=== PATIENT | male | born 1955 | race Caucasian/White ===

== ENCOUNTER 2016-09-10 03:29 | Inpatient (IN) | payer OTHER ==
[~2016-09-10] VITALS: Ht 180.3 cm; Wt 77.2 kg
[2016-09-10] VITALS (8 sets, daily range): BP systolic 99–123; BP diastolic 55–72; PULSE 75–113; RESP 19–20; TEMP 98.3; Ht 180.3 cm; Wt 77.2 kg
[2016-09-10] MEDS ORDERED: DILTIAZEM 25 MG INJ ONE (06:31)
[2016-09-10] MEDS ORDERED: DILTIAZEM 25 MG INJ IV ONE ×2 (07:00)
[2016-09-10] MEDS ORDERED: SOD CHLORIDE 0.9% 1,000 ML IV ONE (07:00)
[2016-09-10] MEDS ORDERED: LORAZEPAM 2 MG INJ IV ONE (07:00)
--- NOTE | 2016-09-10 07:06 | RADRPT ---
PROCEDURE: XR Chest. CLINICAL INDICATION: Abdominal Pain TECHNIQUE: Portable single view of the chest COMPARISON: None. FINDINGS: The cardiomediastinal silhouette appears within normal limits. The lungs are clear and no pleural e ffusion or significant edema is seen. Mild degenerative change of the spine is seen with osteophytes noted. IMPRESSION: No definite acute pulmonary disease. RPTAT: HLBE Joan Nj Physician Date Time Electronically viewed and signed by Joan Nj Physician on 09/10/2016 07:06 ASHLEIGH/
[2016-09-10 07:08] LABS: ADD SCAN DIFF NO
[2016-09-10 07:14] LABS: ABNORMAL IP MESSAGE 1; HEMATOCRIT 52.5 % (42.0-52.0); HEMOGLOBIN 17.2 g/dl (14.0-18.0); MEAN CORPUSCULAR HEMOGLOBIN 30.9 pg (29.0-33.0); MEAN CORPUSCULAR HGB CONC 32.8 g/dl (32.0-37.0); MEAN CORPUSCULAR VOLUME 94.4 fl (82.0-101.0); PLATELET COUNT 370 10^3/UL (140-415); RED BLOOD COUNT 5.56 10^6/ul (4.70-6.10); RED CELL DISTRIBUTION WIDTH 13.3 % (11.5-14.5); WHITE BLOOD COUNT 14.6 10^3/ul (4.8-10.8)
[2016-09-10 07:21] LABS: ALBUMIN 4.1 g/dl (3.3-4.9); INR 0.88; POTASSIUM 4.1 mmol/L (3.5-5.1); PROTIME 11.9 Sec (12.2-14.2); PT RATIO 0.9
[2016-09-10 07:24] LABS: ALBUMIN/GLOBULIN RATIO 1.32; BILIRUBIN,INDIRECT 0.9 mg/dl (0-1.1); BILIRUBIN,TOTAL 0.9 mg/dl (0.2-1.3); CALCIUM 9.4 mg/dl (8.4-10.2); CREATININE 1.09 mg/dl (0.61-1.24); TOTAL PROTEIN 7.2 g/dl (6.1-8.1)
[2016-09-10 07:35] LABS: TROPONIN-I 0.059 ng/ml (0.00-0.12)
[2016-09-10] MEDS ORDERED: CLON0.5T4 PO (07:35)
[2016-09-10] MEDS ORDERED: DILTIAZEM-D5W 125MG/125ML DRIP 125 ML IV SCH (08:00)
[2016-09-10] MEDS ORDERED: ASPIRIN 325 MG TAB PO ONE (08:00)
--- NOTE | 2016-09-10 08:07 | ERA ---
ER Documentation Chief Complaint Date/Time DATE: 09/10/16 TIME: 08:03 Chief Complaint diffuse abd pain x 2 days, diarrhea, vomiting HPI 60-year-old man presents with anxiety, palpitations, nonexertional chest pain generalized weakness 3 days. He also states he has had clear emesis and diarrhea intermittently. He denies history of atrial fibrillation, or irregular heartbeat. Patient denies fevers or chills, no new medication use, no recent travel, no calf or leg swelling. ROS All systems reviewed and are negative except as per history of present illness. 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 09/11/16 Diltiazem Hcl* (Cardizem CD*) 120 Mg Cap.sr.24h, 120 MG PO DAILY for 30 Days Prov:LAUREEN LEBLANC [employer]DB[employer]ATING MACHINE OPERATOR 09/11/16 Reported Medications Clonazepam* (Clonazepam*) 0.5 Mg Tablet, 0.5 MG PO BID Y for ANXIETY, TAB 09/10/16 Allergies Allergies: Coded Allergies: No Known Allergy (Unverified , 09/10/16) PMhx/Soc Anxiety, possible other psychiatric illness, hypertension History of Surgery: Yes (GALLBLADDER REMOVAL ) Anesthesia Reaction: No Hx Miscellaneous Medical Probl: Yes (GERD, ANXIETY ) Hx Alcohol Use: No Hx Substance Use: No Hx Tobacco Use: No Smoking Status: Never smoker FmHx Family History: No diabetes Physical Exam Vitals Vital Signs Date Time Temp Pulse Resp B/P Pulse Ox O2 Delivery O2 Flow Rate FiO2 09/10/16 07:11 104 20 128/82 100 Nasal Cannula 2.0 09/10/16 07:09 98.3 131 20 130/74 100 Nasal Cannula 2.0 09/10/16 06:50 Nasal Cannula 2 09/10/16 06:25 98.0 167 18 124/78 99 Room Air 09/10/16 03:33 98.2 90 20 113/71 98 Physical Exam GENERAL: Well-developed, well-nourished, appears anxious, afebrile HEENT: Moist mucous membranes, pink conjunctiva, no cervical spine tenderness or step-off deformities, no goiter, no jaundice or icterus, extraocular movements intact without pain. No submandibular induration, and no pharyngeal erythema NEURO: Alert and oriented 3, cranial nerves II through XII intact bilaterally, pupils equal round reactive to light, no focal deficits or facial asymmetry, sensation intact distally Strength 5/5 in upper and lower extremities bilaterally CARDIAC: Tachycardic and regular, no murmurs rubs or gallops LUNGS: Clear bilaterally no wheezing crackles or stridor ABDOMEN: Soft nontender, no guarding, no rigidity, no rebound, no psoas sign no obturator sign. Normoactive bowel sounds SKIN: Warm and dry to touch, no abrasions, contusions, or hematomas, no lacerations, no ecchymosis, no target lesions, and without ulcers EXTREMITIES: No clubbing cyanosis or edema, calves are bilaterally symmetrical, no Homans sign, no popliteal cord sign. Distal pulses equal and bilateral PSYCH: Anxious Result Diagram: 09/10/16 0649 09/10/16 0645 Results 24 hrs Laboratory Tests Test 09/10/16 06:45 09/10/16 06:49 Alanine Aminotransferase (ALT/SGPT) 26IU/L Albumin 4.1g/dl Albumin/Globulin Ratio 1.32 Alkaline Phosphatase 99IU/L Anion Gap 20 Aspartate Amino Transf (AST/SGOT) 26IU/L Blood Urea Nitrogen 22mg/dl Calcium Level 9.4mg/dl Carbon Dioxide Level 25mmol/L Chloride Level 109mmol/L Creatinine 1.09mg/dl Direct Bilirubin 0.00mg/dl Globulin 3.10g/dl Glucose Level 120mg/dl INR International Normalized Ratio 0.88 Indirect Bilirubin 0.9mg/dl Lipase 68U/L Potassium Level 4.1mmol/L Prothrombin Time 11.9Sec Prothrombin Time Ratio 0.9 Sodium Level 150mmol/L Total Bilirubin 0.9mg/dl Total Protein 7.2g/dl Troponin I 0.059ng/ml Eosinophils # 10^3/ul Eosinophils % % Hematocrit 52.5% Hemoglobin 17.2g/dl Mean Corpuscular Hemoglobin 30.9pg Mean Corpuscular Hemoglobin Concent 32.8g/dl Mean Corpuscular Volume 94.4fl Mean Platelet Volume 9.0fl Neutrophils # 10^3/ul Neutrophils % % Platelet Count 67414^3/UL Red Blood Count 5.5610^6/ul Red Cell Distribution Width 13.3% White Blood Count 14.610^3/ul Current Medications Medications (Trade) Dose Ordered Sig/Shanta Route PRN Reason Start Time Stop Time Status Last Admin Dose Admin Diltiazem HCl (Cardizem Iv) 25 mg STK-MED ONCE .ROUTE 09/10/16 06:31 09/10/16 06:32 DC Diltiazem HCl 20 mg 20 mg ONCE ONCE IV 09/10/16 07:00 09/10/16 07:01 DC 09/10/16 06:40 Sodium Chloride (NS) 1,000 ml @ 1,000 mls/hr Q1H ONCE IV 09/10/16 07:00 09/10/16 07:59 DC 09/10/16 07:07 Lorazepam (Ativan) 0.5 mg ONCE ONCE IV 09/10/16 07:00 09/10/16 07:01 DC 09/10/16 07:07 Diltiazem HCl 20 mg 20 mg ONCE ONCE IV 09/10/16 07:00 09/10/16 07:01 DC 09/10/16 07:04 Diltiazem HCl (Cardizem-D5W 125 Mg/125 ml Drip) 125 ml @ 5 mls/hr TITRATE IV 09/10/16 08:00 09/10/16 07:57 Aspirin (Aspirin) 325 mg ONCE ONCE PO 09/10/16 08:00 09/10/16 08:01 DC Procedures/[facility] IV line was established patient was placed on satellite project site monitor rhythm strip revealed a narrow complex irregular rate at about 170 bpm. Patient was afebrile. EKG performed, read by me revealed an atrial fibrillation with rapid ventricular response at 167 bpm, normal axis, narrow QRS complex, no concerning ST elevations or depressions noted. Patient received 1 L normal saline intravenously and diltiazem 20 mg IV 2 doses followed by diltiazem drip titrated to keep pulse at about 100 bpm. EKG #2 post diltiazem was performed, read by me revealed an atrial fibrillation rapid ventricular rate at 114 bpm, normal axis, narrow QRS complex, no concerning ST elevations or depressions noted. Patient also received lorazepam 0.5 mg IV for anxiety and aspirin 325 mg p.o. for cardioprotective measures. One AP view of the chest performed, read by me reveals no acute infiltrates, normal mediastinum, sharp costophrenic and cardiac borders, no air under the diaphragm. Otherwise unremarkable chest x-ray. Cardiac critical Care: Time: 45 minutes, this was time separate from other procedures. Treatments/Evaluations: Close monitoring and treatment of unstable vital signs, cardiorespiratory, and neurologic status, while maintaining tight balance of fluid, respiratory, and cardiac interventions. CBC revealed a leukocytosis of 15, electrolytes revealed dehydration with a BUN/ creatinine of 22/1, liver function tests are normal, troponin was negative. Patient will be admitted to telemetry setting. Departure Diagnosis: Primary Impression: Dehydration Additional Impression: Atrial fibrillation with RVR Condition: IDALMIS Nascimento MD Sep 10, 2016 08:07
[2016-09-10] MEDS ORDERED: NITROGLYCERIN (SL) 0.4 MG TAB SL PRN (10:00)
[2016-09-10] MEDS ORDERED: DILTIAZEM 30 MG TAB PO ONE (10:00)
[2016-09-10] MEDS ORDERED: LORAZEPAM 0.5 MG TAB PO PRN (10:00)
[2016-09-10] MEDS ORDERED: NACL 0.9% 3 ML SYG IV SCH (10:00)
[2016-09-10] MEDS ORDERED: ONDANSETRON 4 MG TAB PO PRN (10:00)
[2016-09-10] MEDS ORDERED: ACETAMINOPHEN 325 MG TAB PO PRN (10:00)
[2016-09-10] MEDS ORDERED: morphine 2 MG INJ IV PRN (10:00)
[2016-09-10] MEDS ORDERED: DOCUSATE SODIUM 100 MG CAP PO PRN (10:00)
[2016-09-10] MEDS: PANTOPRAZOLE (EC) 40 MG TAB PO SCH (10:30)
[2016-09-10] MEDS: clonAZEPAM 0.5 MG TAB PO PRN (10:30)
[2016-09-10] MEDS: ENOXAPARIN 40 MG/0.4 ML SYG SC SCH (10:33)
[2016-09-10 10:42] LABS: EOSINOPHILS # 0.3 10^3/ul (0.0-0.5); LYMPHOCYTES # 1.2 10^3/ul (0.8-2.9); MONOCYTE # 0.6 10^3/ul (0.3-0.9)
--- NOTE | 2016-09-10 11:21 | CONS ---
Date/Time of Note Date/Time of Note DATE: 09/10/16 TIME: 11:14 Assessment/Plan Assessment/Plan Chief Complaint/Hosp Course Afib with RVR: Possibly triggered by GI issues, dehydration. CHADSVASC is 0 so no anticoagulation. Rates now controlled off diltiazem drip. Diarrhea/vomiting: ?gastroenteritis Anxiety/depression -start diltiazem 30mg PO q6h, consolidate to 120mg daily tomorrow -f/u echo -IVF as clinically dry -if rates controlled and asymptomatic and no major echo abnormalities, can go home later this evening or tomorrow Problems: Consultation Date/Type/Reason Admit Date/Time Sep 10, 2016 at 09:15 Date of Consultation: Sep 10, 2016 Type of Consultation: Cardiology Reason for Consultation Afib Referring Provider: ENID ARMENDARIZ MD Hx of Present Illness 60 yo M with a h/o anxiety/depression/insomnia, who was admitted for N/V/ diarrhea as well as palpitations and was found to have afib with RVR. He was given IV diltiazem and a drip was started but he has since been taken off the drip. Pt notes that he woke up today and vomited and had diarrhea. He then had palpitations and so he came in for evaluation. Currently asymptomatic. He denies ever having palpitations in the past. He is usually very active and denies CP or SOB. He smokes 2 cigarettes a day and does not drink any alcohol. Currently asymptomatic. per HPI Past Medical History per HPI Social History Smoking Status: Light tobacco smoker Exam/Review of Systems Vital Signs Vitals Vital Signs Date Time Temp Pulse Resp B/P Pulse Ox O2 Delivery O2 Flow Rate FiO2 09/10/16 09:40 98.4 104 20 110/72 2 Nasal Cannula 09/10/16 08:37 2.0 Exam Constitutional: alert, oriented Psych: nl mood/affect, no complaints Head: atraumatic, normocephalic Eyes: nl conjunctiva ENMT: nl external ears & nose Neck: supple, No jvd Respiratory: clear to auscultation, No crackles/rales Cardiovascular: nl pulses, No edema, No regular rate and rhythm (IRIR) Gastrointestinal: non-tender, soft Musculoskeletal: nl extremities to inspection Extremities: normal pulses Neurological: nl mental status, nl speech Skin: No rash or lesions Results EKG: initially afib with RVR rate 170s, then 110. nonspecific ST/T changes Result Diagram: 09/10/16 0649 09/10/16 0645 Results 24 hrs Laboratory Tests Test 09/10/16 06:45 09/10/16 06:49 Alanine Aminotransferase (ALT/SGPT) 26 Albumin 4.1 Albumin/Globulin Ratio 1.32 Alkaline Phosphatase 99 Anion Gap 20 H Aspartate Amino Transf (AST/SGOT) 26 Blood Urea Nitrogen 22 H Calcium Level 9.4 Carbon Dioxide Level 25 Chloride Level 109 Creatinine 1.09 Direct Bilirubin 0.00 Globulin 3.10 Glucose Level 120 INR International Normalized Ratio 0.88 Indirect Bilirubin 0.9 Lipase 68 Potassium Level 4.1 Prothrombin Time 11.9 L Prothrombin Time Ratio 0.9 Sodium Level 150 H Total Bilirubin 0.9 Total Protein 7.2 Troponin I 0.059 Band Neutrophils % 11.0 H Differential Comment MANUAL DIFF Eosinophils # 0.3 Eosinophils % 2.0 Hematocrit 52.5 H Hemoglobin 17.2 Lymphocytes # 1.2 Lymphocytes % 8.0 L Mean Corpuscular Hemoglobin 30.9 Mean Corpuscular Hemoglobin Concent 32.8 Mean Corpuscular Volume 94.4 Mean Platelet Volume 9.0 Monocytes # 0.6 Monocytes % 4.0 Neutrophils # 11.0 H Neutrophils % 75.0 Platelet Count 370 Red Blood Count 5.56 Red Cell Distribution Width 13.3 White Blood Count 14.6 H Medications Medications Current Medications Clonazepam (Klonopin) 0.5 mg BID PRN PO ANXIETY Last administered on 09/10/16t 10:30; Admin Dose 0.5 MG; Start 09/10/16 at 10:00 Ondansetron HCl (Zofran Tab) 4 mg Q6H PRN PO NAUSEA AND/OR VOMITING; Start 04/19 at 10:00 Aspirin (Aspirin) 81 mg DAILY PO ; Start 09/11/16 at 09:00 Nitroglycerin (Nitroglycerin (Sl Tab) 0.4 Mg) 1 tab Q5M PRN SL CHEST PAIN; Start 09/10/16 at 10:00 Acetaminophen (Tylenol Tab) 650 mg Q6H PRN PO PAIN LEVEL 1-3 OR FEVER; Start at 10:00 Morphine Sulfate (morphine) 1 mg Q4H PRN IV PAIN LEVEL 7-10; Start 09/10/16 at 10:00 Docusate Sodium (Colace) 100 mg Q12H PRN PO CONSTIPATION; Start 09/10/16 at 10: 00 Pantoprazole (Protonix Tab) 40 mg DAILY@06 PO Last administered on 09/10/16 10 :30; Admin Dose 40 MG; Start 09/10/16 at 10:00 Enoxaparin Sodium (Lovenox) 40 mg DAILY SC Last administered on 09/10/16 10:33 ; Admin Dose 40 MG; Start 09/10/16 at 10:00 Diltiazem HCl (Cardizem) 30 mg QID PO ; Start 09/10/16 at 13:00 LUIS WEAVER Sep 10, 2016 11:21
[2016-09-10 12:36] LABS: CK-MB 1.36 ng/ml (0.0-2.4)
[2016-09-10 12:38] LABS: TROPONIN-I 0.097 ng/ml (0.00-0.12)
[2016-09-10] MEDS: DILTIAZEM 30 MG TAB PO SCH ×3 (12:41→21:01)
--- NOTE | 2016-09-10 13:53 | RADRPT ---
Echocardiogram Report Patient Name: BENNY MCRAE Gender: Male Date: 1955 Study Date: 10-Sep-2016 Sap Ppm Consultant: Edwardo Rain [facility] Location: [id number] Ref. Physician: ENID ARMENDARIZ Quality: Good Procedures: Transthoracic echocardiogram with complete 2D, M-Mode, and doppler examination. Indications: New onset Atrial Fibrillation. 2D/M Mode Doppler Measurement Value Normal Ranges Measurement Value Normal Ranges LVIDd 2D 4.0 3.5 - 5.6 cm AV Peak Remi 1.3 m/sec LVIDs 2D 2.0 2.1 - 4.1 cm AV Peak PG 6.0 mmHg FS 2D 49.9 % LVOT Peak Remi 1.2 m/sec LVPWd 2D 1.1 0.6 - 1.1 cm LVOT Peak PG 6.0 mmHg IVSd 2D 1.2 0.6 - 1.1 cm IVS/LVPW 2D 1.1 AoR Diam 2D 2.9 2.0 - 3.7 cm LA/Ao 2D 1 0 - 1 EDV 2D 61.6 cm3 ESV 2D 7.8 cm3 LA Dimen 2D 3.5 2.3 - 4.0 cm Findings Left Ventricle: Normal left ventricular systolic function. Normal left ventricular cavity size. Mild concentric left ventricular hypertrophy. Ejection fraction is visually estimated at 60 %. Tissue Doppler/Mitral Doppler indices are indeterminate in this study due to the presence of atrial fibrillation. Right Ventricle: Normal right ventricular size. Normal right ventricular systolic function. Left Atrium: There is mild enlargement of left atrium. Right Atrium: There is mild enlargement of right atrium. Mitral Valve: Severe mitral annular calcification. Trace mitral regurgitation. Aortic Valve: No significant aortic stenosis or insufficiency. Aortic cusps appear mildly calcified. Tricuspid Valve: Normal appearance of the tricuspid valve. Unable to obtain RVSP due to minimal presence of tricuspid regurgitation. Pulmonic Valve: Normal pulmonic valve appearance. Pericardium: Normal pericardium with no significant pericardial effusion. Aorta: Normal aortic root. IVC: Normal size and normal respiratory collapse consistent with normal right atrial pressure. Conclusions 1.Normal left ventricular systolic function. Normal left ventricular cavity size. Mild concentric left ventricular hypertrophy. Ejection fraction is visually estimated at 60 %. Tissue Doppler/Mitral Doppler indices are indeterminate in this study due to the presence of atrial fibrillation. 2.No significant valvular stenosis or regurgitation seen. 3.Unable to obtain RVSP due to minimal presence of tricuspid regurgitation. RA pressure is 3 mmHg. Electronically Signed By: Brooks Nuñez 10-Sep-2016 13:52:03 -0800 Patient Name: BENNY MCRAE Study Date: 10-Sep-2016 [id number]
[2016-09-10] MEDS ORDERED: DILTIAZEM 30 MG TAB PO SCH (14:00)
[2016-09-10] MEDS: SOD CHLORIDE 0.45% 1,000 ML IV SCH (17:20)
[2016-09-10] MEDS: CIPROFLOXACIN 500 MG TAB PO SCH (17:20)
--- NOTE | 2016-09-10 17:37 | HP ---
DATE OF ADMISSION: 09/10/2016 FITTER MECHANIC: Cardiology. CHIEF COMPLAINT: Palpitations and lightheadedness. HISTORY OF PRESENT ILLNESS: This is a pleasant 60-year-old gentleman with past medical history of a nxiety who presents to [facility] secondary to having diffuse abdominal pain x2 da ys with diarrhea, vomiting and palpitations. Upon arrival to emergency room, the patient's LFTs wer e within normal limits. Troponin was 0.059, 0.97. Sodium 150. The patients' monitor was found to have new onset of atrial fibrillation and was treated with Cardizem IV, cardiology was consulted in the course of emergency room. At this time, the patient denies any chest pain, shortness of breath, nausea, vomiting, diarrhea. No headache, dizziness, lightheadedness. No change in visual acuity, d iplopia, photophobia. No abdominal pain. The diarrhea has resolved completely. He denies having a ny other discomfort. He denies any recent travel history. No sick contact. No change in the color of stool. No hematochezia, melena or hematemesis. PAST MEDICAL AND SURGICAL HISTORY: Anxiety. MEDICATIONS: Klonopin. SOCIAL HISTORY: Negative x3 for smoking, alcohol, illicit drugs. Lives at home with his family. REVIEW OF SYSTEMS: As above per HPI, otherwise 12 review of systems was found to be negative. PHYSICAL EXAMINATION: VITAL SIGNS: Temperature 98.4, pulse ranges between 86 to 104, blood pressure 110/72, oxygen 97% in room air. GENERAL APPEARANCE: The patient is lying in bed comfortably without any acute distress. He is awak e, alert, oriented. He is able to answer my questions properly. EYES AND ENT: Conjunctivae and lids are normal. Pupils are normal. Extraocular normal. Hearing g rossly normal. Lips are normal. Oral mucosa is moist. NECK: Supple. Trachea is midline. No lymphadenopathy. RESPIRATORY: Effort is normal. Clear to auscultation bilaterally. CARDIOVASCULAR: Normal S1, S2. Irregular rhythm, regular rate. No murmur, no bruits, no edema. P eripheral pulses, radial pulses palpable. Cap refill is normal. CHEST: Normal expansion of thorax during inspiration. ABDOMEN: Abdomen is soft, nontender, not distended. Bowel sounds present. No guarding, no reboun d. GENITOURINARY: Deferred. MUSCULOSKELETAL: Upper and lower extremities within normal limits. Full range of motion, strength 5/5 both upper and lower extremities. NEUROLOGIC: Cranial nerves II through XII are grossly intact. PSYCHIATRIC: Normal judgment and insight. Alert and oriented x3. Mood and affect is normal. LABORATORY WORK: Sodium 150, potassium 4.1, chloride 109, bicarbonate 25, BUN 22, creatinine 1.0. Glucose 120. LFTs all within normal limits. Troponin 0.059 and 0.97, lipase 68. PT 11.9, INR 0.88 . WBC 14.3, hemoglobin 17.3, hematocrit 50.5, platelet 370. ASSESSMENT AND PLAN: 1. New onset of atrial fibrillation. The patient is status post Cardizem drip and will also place the patient on aspirin, Lovenox 40 mg. Cardiology has been consulted. A 2D echocardiogram was obta ined. 2. Possible gastroenteritis. We will start the patient on ciprofloxacin and follow up stool sample . 3. For deep venous thrombosis prophylaxis, on Lovenox with gastrointestinal prophylaxis on Pepcid. 4. Anxiety. The patient will be continued on Klonopin. We will continue to monitor patient closely. Further recommendations, management, and treatment as per clinical course. Dictated By: ENID STOCK/NEW Conf#: [id number] DID#: [id number]
[2016-09-10 18:48] LABS: TROPONIN-I 0.085 ng/ml (0.00-0.12)
[2016-09-10 18:53] LABS: CK-MB 1.2 ng/ml (0.0-2.4)
[2016-09-10 22:59] LABS: TROPONIN-I 0.055 ng/ml (0.00-0.12)
[2016-09-10 23:00] LABS: CK-MB 1.12 ng/ml (0.0-2.4)
[2016-09-11] VITALS (10 sets, daily range): BP systolic 106–120; BP diastolic 60–67; PULSE 68–75; RESP 18–19
[2016-09-11] MEDS: SOD CHLORIDE 0.45% 1,000 ML IV SCH (06:03)
[2016-09-11] MEDS: CIPROFLOXACIN 500 MG TAB PO SCH (06:03)
[2016-09-11] MEDS: PANTOPRAZOLE (EC) 40 MG TAB PO SCH (06:03)
[2016-09-11 07:38] LABS: ADD SCAN DIFF NO
[2016-09-11 07:44] LABS: BASOPHIL # 0.1 10^3/ul (0.0-0.1); BASOPHILS % 0.7 % (0.0-2.0); EOSINOPHILS # 0.2 10^3/ul (0.0-0.5); EOSINOPHILS % 2.6 % (0.0-7.0); HEMATOCRIT 49.6 % (42.0-52.0); HEMOGLOBIN 16.2 g/dl (14.0-18.0); LYMPHOCYTES # 2.2 10^3/ul (0.8-2.9); MEAN CORPUSCULAR HEMOGLOBIN 30.7 pg (29.0-33.0); MEAN CORPUSCULAR HGB CONC 32.7 g/dl (32.0-37.0); MEAN CORPUSCULAR VOLUME 94.1 fl (82.0-101.0); MEAN PLATELET VOLUME 9.2 fl (7.4-10.4); MONOCYTE # 0.6 10^3/ul (0.3-0.9); MONOCYTES % 8.5 % (0.0-11.0); NEUTROPHIL # 4.4 10^3/ul (1.6-7.5); NEUTROPHILS % 58.5 % (39.0-77.0); PLATELET COUNT 364 10^3/UL (140-415); RED BLOOD COUNT 5.27 10^6/ul (4.70-6.10); RED CELL DISTRIBUTION WIDTH 13.7 % (11.5-14.5); WHITE BLOOD COUNT 7.6 10^3/ul (4.8-10.8)
[2016-09-11 07:59] LABS: POTASSIUM 4.1 mmol/L (3.5-5.1)
[2016-09-11 08:01] LABS: CREATININE 0.88 mg/dl (0.61-1.24)
[2016-09-11 08:02] LABS: CALCIUM 8.5 mg/dl (8.4-10.2); CHOL/HDL RATIO 3.2 RATIO
[2016-09-11 08:33] LABS: THYROID STIMULATING HORMONE 0.159 MIU/L (0.465-4.680)
--- NOTE | 2016-09-11 08:35 | CONS ---
Date/Time of Note Date/Time of Note DATE: 09/11/16 TIME: 08:33 Assessment/Plan Assessment/Plan Chief Complaint/Hosp Course Afib with RVR: Possibly triggered by GI issues, dehydration. CHADSVASC is 0 so no anticoagulation. Now back in sinus. EF normal Diarrhea/vomiting: ?gastroenteritis. Resolved Anxiety/depression -consolidate to diltiazem 120mg daily -ASA -ok for d/c -outpt cardiology f/u Problems: Consultation Date/Type/Reason Admit Date/Time Sep 10, 2016 at 09:15 Initial Consult Date 09/10/16 Type of Consultation: Cardiology Referring Provider: ENID ARMENDARIZ MD 24 HR Interval Summary Free Text/Dictation Converted to sinus overnight. No further diarrhea. Feels well. Exam/Review of Systems Vital Signs Vitals Vital Signs Date Time Temp Pulse Resp B/P Pulse Ox O2 Delivery O2 Flow Rate FiO2 09/11/16 08:17 98.5 66 19 106/63 95 09/10/16 09:40 Nasal Cannula 09/10/16 08:37 2.0 Intake and Output 09/10/16 09/10/16 09/11/16 15:00 23:00 07:00 Intake Total 500 ml 1188 ml Output Total 2 ml Balance 500 ml 1186 ml Exam Constitutional: alert, oriented Psych: no complaints Head: atraumatic, normocephalic Neck: No jvd Respiratory: clear to auscultation Cardiovascular: regular rate and rhythm, No edema, No systolic murmur Gastrointestinal: non-tender, soft Extremities: normal pulses Neurological: nl mental status, nl speech Results Result Diagram: 09/11/16 0640 09/11/16 0646 Results 24 hrs Laboratory Tests Test 09/10/16 11:49 09/10/16 17:53 09/10/16 22:12 09/11/16 06:40 Creatine Kinase 97 91 77 Creatine Kinase Index 1.4 1.3 1.5 Creatinine Kinase MB (Mass) 1.36 1.20 1.12 Troponin I 0.097 0.085 0.055 Basophils # 0.1 Basophils % 0.7 Eosinophils # 0.2 Eosinophils % 2.6 Hematocrit 49.6 Hemoglobin 16.2 Lymphocytes # 2.2 Lymphocytes % 29.0 Mean Corpuscular Hemoglobin 30.7 Mean Corpuscular Hemoglobin Concent 32.7 Mean Corpuscular Volume 94.1 Mean Platelet Volume 9.2 Monocytes # 0.6 Monocytes % 8.5 Neutrophils # 4.4 Neutrophils % 58.5 Nucleated Red Blood Cells # 0.0 Nucleated Red Blood Cells % 0.0 Platelet Count 364 Red Blood Count 5.27 Red Cell Distribution Width 13.7 White Blood Count 7.6 # Test 09/11/16 06:46 Anion Gap 16 Blood Urea Nitrogen 18 Calcium Level 8.5 Carbon Dioxide Level 23 Chloride Level 106 Cholesterol Level 212 H Cholesterol/HDL Ratio 3.2 Creatinine 0.88 Glucose Level 88 HDL Cholesterol 66 LDL Cholesterol, Calculated 125 Magnesium Level 2.0 Potassium Level 4.1 Sodium Level 141 Thyroid Stimulating Hormone (TSH) Pending Triglycerides Level 103 Medications Medications Current Medications Clonazepam (Klonopin) 0.5 mg BID PRN PO ANXIETY Last administered on 09/10/16 10:30; Admin Dose 0.5 MG; Start 09/10/16 at 10:00 Ondansetron HCl (Zofran Tab) 4 mg Q6H PRN PO NAUSEA AND/OR VOMITING; Start 04/19 at 10:00 Aspirin (Aspirin) 81 mg DAILY PO ; Start 09/11/16 at 09:00 Nitroglycerin (Nitroglycerin (Sl Tab) 0.4 Mg) 1 tab Q5M PRN SL CHEST PAIN; Start 09/10/16 at 10:00 Acetaminophen (Tylenol Tab) 650 mg Q6H PRN PO PAIN LEVEL 1-3 OR FEVER; Start at 10:00 Morphine Sulfate (morphine) 1 mg Q4H PRN IV PAIN LEVEL 7-10; Start 09/10/16 at 10:00 Docusate Sodium (Colace) 100 mg Q12H PRN PO CONSTIPATION; Start 09/10/16 at 10: 00 Pantoprazole (Protonix Tab) 40 mg DAILY@06 PO Last administered on 09/11/16 06 :03; Admin Dose 40 MG; Start 09/10/16 at 10:00 Enoxaparin Sodium (Lovenox) 40 mg DAILY SC Last administered on 09/10/16 10:33 ; Admin Dose 40 MG; Start 09/10/16 at 10:00 Diltiazem HCl (Cardizem) 30 mg QID PO Last administered on 09/10/16 21:01; Admin Dose 30 MG; Start 09/10/16 at 13:00 Ciprofloxacin 500 mg 500 mg BID@06,18 PO Last administered on 09/11/16 06:03; Admin Dose 500 MG; Start 09/10/16 at 18:00 Sodium Chloride (1/2 NS) 1,000 ml @ 75 mls/hr [id number] IV Last administered on 09/11/16 06:03; Admin Dose 75 MLS/HR; Start 09/10/16 at 17:30 LUIS WEAVER Sep 11, 2016 08:35
[2016-09-11] MEDS ORDERED: DILTIAZEM (CD) 120 MG CAP PO SCH (09:00)
[2016-09-11] MEDS ORDERED: ASPIRIN 81 MG TAB PO SCH (09:00)
[2016-09-11] MEDS: ENOXAPARIN 40 MG/0.4 ML SYG SC SCH (10:03)
--- NOTE | 2016-09-11 13:17 | PDOCDIS ---
Discharge Instructions DIAGNOSIS Discharge Diagnosis: Paroxysmal atrial fibrillation. CONDITION Patient Condition: Stable HOME CARE INSTRUCTIONS: Diet Instructions: Low Fat /Cholesterol FOLLOW UP/APPOINTMENTS Appointments Kirk Garcia MD Specialty: Internal Medicine Office Address: [address] [place], [place] [id number] Office OTHER ORDERS: Other Orders: 1. Take medications as per prescription. 2. Follow a low-cholesterol diet. 3. Follow-up with your primary care physician in 2 weeks. If you do not have a primary care physician, please call Dr. Kirk Garcia's office. Please arrange with your primary care physician for cardiology follow-up. 4. Resume activities as tolerated. 5. Please call 911 or go to the nearest emergency room if you have any chest pain, palpitations, shortness of breath, or any other unusual signs/symptoms. LAUREEN LEBLANC NP Sep 11, 2016 13:17
[2016-09-11] MEDS ORDERED: ASPI81TA3 PO (13:20)
[2016-09-11] MEDS ORDERED: DILT120C77 PO (13:20)
[2016-09-11] MEDS: clonAZEPAM 0.5 MG TAB PO PRN (16:30)
--- NOTE | 2016-09-11 18:38 | DS ---
DATE OF ADMISSION: 09/10/2016 DATE OF DISCHARGE: 09/11/2016 FINAL DIAGNOSES: 1. Paroxysmal atrial fibrillation. 2. Anxiety disorder. 3. Dyslipidemia. 4. Questionable gastroenteritis, resolved. CONSULTANTS: Dr. Brooks Nuñez, Cardiology. HOSPITAL COURSE: This is a 60-year-old male with past medical history of anxiety who presented to [facility] secondary to having diffuse abdominal pain x2 days, diarrhea, vomiting and palpitations. Upon arrival to the emergency room, the patient was noticed to have a troponin of 0.059. The patient was noticed to be in atrial fibrillation and the patient was treated with IV Cardizem. Cardiology was consulted in the course of the emergency room. The patient denied any chest pain or dyspnea in the emergency room. Provided the patient's history of present illness and the diagnostic findings, a clinical decision was made to admit the patient to inpatient setting to have him further evaluated. The patient was admitted to inpatient telemetry floor. The patient was started on empiric antibiotics for any underlying acute gastroenteritis. The patient's atrial fibrillation was converted to normal sinus rhythm with Cardizem. The patient was switched to Cardizem orally and the patient's Cardizem dosing was consolidated to 120 mg daily. The patient did not require any therapeutic anticoagulation for stroke prophylaxis since the patient's CHADS2-VASc score is only 0. The patient underwent a 2D echocardiogram that showed a preserved left ventricular ejection fraction. However, the patient was started on aspirin (low dose). The patient was also noticed to have dyslipidemia with elevated total cholesterol and suboptimal LDL. The patient had some leukocytosis upon presentation to the emergency room with bandemia. This was resolved over the course of the patient's hospital stay. The patient had stool studies ordered. However, the patient had no more diarrhea or gastrointestinal symptoms since hospitalization. The patient's symptoms of gastroenteritis was completely resolved. It was concluded that this could have been most probably secondary to a viral gastroenteritis. The patient's atrial fibrillation was converted to normal sinus rhythm. Hence, the patient was cleared by Cardiology to be discharged home. The patient has underlying anxiety disorder. The patient was maintained on anxiolytics for the same. The patient had a stable hospital course. The patient denied any complaints at the time of discharge. DISCHARGE DISPOSITION/PLAN: The patient will be discharged home today. The patient was instructed to take medications as per prescription, was instructed to follow a low cholesterol diet. He was instructed to follow up with his primary care physician in 2 weeks and if he does not have a primary care physician, to please call Dr. Kirk Garcia's office and to please arrange with this primary care physician for cardiology followup. He was instructed to resume activities as tolerated. He was instructed to call 911 or go to the nearest emergency room if he has any chest pain, palpitations, shortness of breath or any other unusual signs or symptoms. The patient verbalized understanding of his discharge instructions. CONDITION AT DISCHARGE: Stable. DISCHARGE MEDICATIONS: 1. Aspirin 81 mg p.o. daily. 2. Cardizem-CD 120 mg p.o. daily. 3. Clonazepam 0.5 mg p.o. b.i.d. p.r.n. anxiety (#20 tablets). PERTINENT LABORATORY AND DIAGNOSTIC DATA: 1. 2-D echocardiogram. Ejection fraction of 60%. No significant valvular stenosis or regurgitation is seen. 2. Latest CBC: WBC 7.6, hemoglobin 16.2, hematocrit 49.6, platelet count 364. 3. Latest BMP: Sodium 141, potassium 4.1, chloride 106, carbon dioxide 23, anion gap 16, BUN 18, creatinine 0.88, glucose 88, calcium 8.54, magnesium 2.0. 4. Fasting lipid panel: Triglycerides 103, total cholesterol 212, LDL 125, HDL of 66. 5. Thyroid panel: TSH 0.159, free T4 of 1.23. 6. Chest x-ray. No acute cardiopulmonary disease. At this time, I would like to thank Dr. Nuñez for seeing the patient and providing clinical recommendations. The case and management of this patient was fully discussed with Dr. Duarte. Approximately 35 minutes was spent on coordinating the discharge on this patient. LAUREEN DUARTE MD, AM/NEW Conf#: [id number] DID#: [id number]
== END 2016-09-11 16:32 | disposition home or self-care (01) | DRG 310 ==
LOC: E/R 03:29 → MS4 07:59 → UNDOADMIN 09:15 → MS4 09:15 → UNDODISIN 09-11 16:32
PROVIDERS: ADMIT Family Medicine; ATTEND Family Medicine
DX: I48.0 Paroxysmal atrial fibrillation (principal); E78.5 Hyperlipidemia, unspecified; F41.9 Anxiety disorder, unspecified; K52.9 Noninfective gastroenteritis and colitis, unspecified; E86.0 Dehydration; Z72.0 Tobacco use
CPT/HCPCS: 36415; 71010; 80048; 80053; 80061; 82550; 82553; 83690; 83735; 84439; 84443; 84484; 85025; 85610; 93005; 93306; 96374; 96375; J1650; J2060; J7030